=== PATIENT | female | born 1990 | race Hispanic/Latino ===

== ENCOUNTER 2019-07-08 14:45 | Outpatient (CLI) | payer BC ==
--- NOTE | 2019-07-08 15:09 | RAD ---
RADIOGRAPH CHEST 2 VIEWS: DATE: 07/08/2019 HISTORY: 29-year-old female with bronchitis FINDINGS: There is no airspace density, pulmonary edema, pleural effusion, pneumothorax, or cardiomegaly. IMPRESSION: No acute cardiopulmonary findings.
== END 2019-07-08 14:46 | disposition home or self-care (01) ==
LOC: NAV RAD 14:45
PROVIDERS: ATTEND Nurse Practitioner Family
DX: J40 Bronchitis, not specified as acute or chronic (principal)
CPT/HCPCS: 71046